=== PATIENT | male | born 1970 | race Caucasian/White ===

== ENCOUNTER 2017-12-18 16:30 | Emergency (ER) | payer SELFPAY ==
[~2017-12-18] VITALS: Ht 175.3 cm; Wt 79.5 kg
[2017-12-18 16:41] VITALS: BP 137/80; PULSE 67; RESP 20; TEMP 98.4; O2SAT 99
[2017-12-18] MEDS ORDERED: DEXAMETHASONE SOD PHOS 20 MG/5 ML VIAL IM ONE (17:30)
--- NOTE | 2017-12-18 17:34 | PD ---
HPI Chief Complaint: Back/ Neck Pain or Injury Time Seen by Provider: 17:16 Travel History International Travel<30 days: No Contact w/Intl Traveler<30days: No Traveled to known affect area: No History of Present Illness HPI Patient comes to the emergency department complaining of continued back, shoulder, and hip pain ongoing for 6 weeks after a fall down some stairs. Patient reports that he went to different ER initially and had x-rays and CAT scans done that showed no acute abnormalities. Patient reports that he went back to the same ER once he got out of [facility] living and additional studies done that showed some bulging disc. Patient states he has not been able to follow-up with anyone secondary to cost. Patient been taking Tylenol and ibuprofen as well as using heat and ice with minimal improvement of symptoms. Pain is worse with certain movement. Patient denies any other known trauma, loss change in bowel or bladder, weakness, chest pain, shortness of breath, history of IV drug use, or numbness or tingling anywhere. PFSH Past Medical History Musculoskeletal: Yes Social History Alcohol Use: No Tobacco Use: No Substance Use: No Allergies-Medications (Allergen,Severity, Reaction): Coded Allergies: No Known Allergies (Unverified , 12/18/17) Reported Meds & Prescriptions Reported Meds & Active Scripts Active Flexeril (Cyclobenzaprine HCl) 10 Mg Tab 10 Mg PO Q8HR PRN Do not drive or operate heavy machinery while on medication as it may cause drowsiness. Do not consume alcohol while taking medication. Prednisone (21) 10 mg tab Dose Pack (Prednisone) 10 Mg Pack 10 Mg PO DIRECTED Start 12/19/17 Review of Systems Except as stated in HPI: all other systems reviewed are Neg Physical Exam Narrative GENERAL: Well-developed, overly nourished, in no acute distress, and non-ill appearing. SKIN: Focused skin assessment warm and dry. HEAD: Atraumatic. Normocephalic. EYES: Pupils equal and round. EOMI. No scleral icterus. No injection or drainage. ENT: No nasal bleeding or discharge. Mucous membranes pink and moist. NECK: Trachea midline. Supple. No nuclear rigidity. CARDIOVASCULAR: Regular rate and rhythm. No murmur appreciated. Radial pulses 2+, intact, and equal bilaterally. Capillary refill less than 2 seconds. RESPIRATORY: No accessory muscle use. No respiratory distress. GASTROINTESTINAL: Abdomen soft, non-tender, nondistended, and no guarding. Hepatic and splenic margins not palpable. No pulsatile mass. MUSCULOSKELETAL: No obvious deformities. No clubbing. No cyanosis. No edema. Decreased range of motion left shoulder secondary to pain. No crepitus or tenderness over midline throughout the spinal column. Patient reports tenderness palpation paravertebral spinal muscles. Straight leg test negative bilaterally. Strength 5 out of 5 and equal bilateral lower extremities. Sensation intact over first webspace bilateral lower extremities. NEUROLOGICAL: Awake and alert. No obvious cranial nerve deficits. Motor grossly within normal limits. Normal speech. PSYCHIATRIC: Appropriate mood and affect; insight and judgment normal. Data Data Last Documented VS Vital Signs Date Time Temp Pulse Resp B/P (MAP) Pulse Ox O2 Delivery O2 Flow Rate FiO2 12/18/17 16:41 98.4 67 20 137/80 (99) 99 Orders Orders Ed Discharge Order (12/18/17 17:30) Dexamethasone Inj (Decadron Inj) (12/18/17 17:30) MDM Medical Decision Making Medical Screen Exam Complete: Yes Emergency Medical Condition: No Differential Diagnosis Fracture, strain, acute on chronic pain, chronic pain Narrative Course There were no subjective or objective findings to support radiographic evaluation. There is no midline spine pain or tenderness and no significant distracting injury to suggest associated spine injury. The patient has no neurological complaints. The patient has been behaving normally and no notable altered mental status. Brenda score of 15. The patients neurological exam is normal with normal motor and sensory. There is no saddle paresthesias reported and no bowel or bladder incontinence or retention. Clinical suspicion, plan of care and management was discussed with the patient. The patient was instructed to follow up with their health care provider. The patient was also instructed to return if the pain worsened, changed, or developed weakness or bowel or bladder trouble. The patient agreed with plan. . There was no evidence to support genitourinary etiology. There is also no evidence to suggest vascular pathology such as AAA dissection. No fevers or other evidence to suspect infectious processes, abscess etc. Patient in no obvious distress upon re-evaluation. Patient was asked if they wanted to speak to my attending, which the patient did not wish to do at this time. Any questions/concerns in reference to patient diagnosis/condition discussed and clarified prior to patient's discharge. Reinforced sheer importance of close follow up with patient's primary physician or primary care clinic. Instructed patient to return to ED immediately, if symptoms return/ worsen. Patient showed understanding of above instructions. Further instructions and recommendations were detailed in discharge paperwork. Patient ambulated without difficulty out of ED at discharge. Diagnosis Primary Impression: Musculoskeletal pain Referrals: [facility] Patient Instructions: General Instructions, Musculoskeletal Pain (ED) Additional Instructions: Follow-up with your primary care physician next week for reevaluation. Take all medication as prescribed. Do not take ibuprofen while taking steroids prescribed today. Return to the emergency department if symptoms get worse. Med/Other Pt SpecificInfo: Prescription(s) given Scripts Cyclobenzaprine (Flexeril) 10 Mg Tab 10 MG PO Q8HR Y for MUSCLE PAIN, #15 TAB [address] or operate heavy machinery while on medication as it may cause drowsiness. Do not consume alcohol while taking medication. Prov: Heavenly Donovan MD 12/18/17 Prednisone (21) 10 mg tab Dose Pack (Prednisone (21) 10 mg tab Dose Pack) 10 Mg Pack 10 MG PO DIRECTED for Inflammation, #1 DSPK 0 Refills Start 12/19/17 Prov: Heavenly Donovan MD 12/18/17 Disposition: 01 DISCHARGE HOME Condition: Stable Romario Brown December 18, 2017 17:34
[2017-12-18] MEDS ORDERED: CYCL10TA PO (17:36)
[2017-12-18] MEDS ORDERED: PRED10PA PO (17:36)
== END 2017-12-18 18:01 | disposition home or self-care (01) ==
LOC: NEPK 16:30
DX: M79.1 Myalgia (principal); M25.512 Pain in left shoulder; M54.9 Dorsalgia, unspecified
CPT/HCPCS: 96372; 99283; J1100